=== PATIENT | female | born 1995 ===

== ENCOUNTER 2023-08-22 11:37 | Emergency (ER) | payer SELFPAY ==
--- NOTE | ~2023-08-22 | CT_ITS ---
EXAMINATION: CT HEAD AND FACIAL BONES WITHOUT CONTRAST CLINICAL INFORMATION: Fall intoxicated COMPARISON: None TECHNIQUE: Contiguous axial imaging was performed from the skull base to vertex and facial bones without intravenous administration of contrast. This CT examination was performed using dose optimization techniques as appropriate, variously including the following: *Automated exposure control *Adjustment of mA and/or kV according to patient size (this includes techniques or standardized protocols for targeted exams where dose is matched to indication/reason for exam; i.e. extremities or head) *Use of iterative reconstruction technique DLP: 643.99 mGy-cm (CT Head) 321.33 mGy-cm (CT Facial Bones) FINDINGS: There is no evidence of acute intracranial hemorrhage or territorial infarction. No abnormal mass effect or midline shift is seen. Rao to white matter differentiation is well preserved. No extra-axial fluid collections are identified. The ventricles are normal in size. There is no abnormal attenuation within the brain parenchyma.. The osseous structures and soft tissues are normal. The paranasal sinuses are well-aerated. No air-fluid levels are seen. There is slight rightward deviation of the nasal septum. The ostiomeatal complexes are clear. The lamina papyracea are intact. The ethmoid roofs are symmetric. No maxillary periapical disease is seen. The mastoid air cells and visualized middle ear cavities are well-aerated. The orbits are normal. The TMJs are unremarkable. CT/CT cervical spine wo IV con IMPRESSION: 1. No acute intracranial pathology. 2. No acute visible fracture or dislocation. EXAMINATION: Noncontrast CT scan of the cervical spine. INDICATION: Fall COMPARISON: None. TECHNIQUE: Helical, multidetector axial images were obtained from the occiput to the upper thorax. Coronal and sagittal reformats of the cervical spine were provided for interpretation. DLP: 262.64 mGy-cm FINDINGS: No acute fractures or dislocations of the cervical spine are seen. Straightening the normal cervical curvature. Anatomic alignment and positioning of the vertebral bodies and posterior elements is noted. The atlantoaxial joint and craniovertebral articulations are normal without evidence of subluxation. There is no prevertebral soft tissue swelling. The thyroid gland and visualized portions of the lung apices and mediastinum are unremarkable. Focus of air along the posterior right trachea mediastinum potentially venous/iatrogenic in etiology is no tracheal diverticulum definitively visualized. IMPRESSION: 1. No acute visible fracture or dislocation. 2. Straightening the normal cervical curvature.
[2023-08-22 11:42] VITALS: BP 105/65; PULSE 116; RESP 16; TEMP 37.1; O2SAT 95; BMI 20.7
--- NOTE | 2023-08-22 11:42 | ED_ITS ---
HPI - Wound/Laceration General Chief Complaint: Wound/Laceration Stated Complaint: chin lac Time Seen by Provider: 08/22/23 12:17 Source: patient and other (friend) Mode of arrival: ambulatory Limitations: no limitations History of Present Illness ED Provider: Evans HPI narrative: Patient is a 28-year-old female presenting to the emergency department with complaint of chin laceration and bruising to left upper eyelid. States that she was out last night and drinking alcohol. Friend states that when she dropped the patient off at home she was acting normally and had no injuries. Patient states that she woke with the laceration and bruising to left eye and no recollection of what happened. She denies current headache or changes in vision. Denies neck or back pain. Unknown last Tdap. Onset (ago): hour(s) Location: face Place: home Patient tetanus UTD: No Context: other (Unknown) Associated symptoms: pain Related Data Allergies Allergy/AdvReac Type Severity Reaction Status Date / Time No Known Allergies Allergy Verified 08/22/23 11:48 Review of Systems 2 Review of Systems: As per HPI. Yes all other systems are reviewed and are negative [facility] Social History Social History Advance Directives: No Advance Directives Information Provided: Yes Do you have a plan to hurt others: No Plan Physical Exam 2 Vital Signs: Vital Signs: Last Vital Signs Temp 98.7 F 08/22/23 14:05 Pulse 116 H 08/22/23 14:05 Resp 16 08/22/23 14:05 BP 105/65 08/22/23 14:05 Pulse Ox 95 08/22/23 14:05 O2 Del Method Room Air 08/22/23 14:05 BMI result Body Mass Index 20.7 Vital signs have been reviewed and appear to be correct. Blood pressure normal. Heart rate mildly tachycardic. Respiratory rate normal. Temperature normal. Oxygen saturation normal. Const: General: healthy appearing and no acute distress O rientation/consciousness: oriented to person, oriented to place, oriented to time and patient oriented x3 Limitations: no limitations HEENT: Head: Yes No palpable skull fracture present, Yes normocephalic, Yes atraumatic, No Wynn's sign and Yes periorbital ecchymosis (left upper eyelid only) Ears: hearing grossly normal bilaterally, external ears normal, TM's normal bilaterally and EAC's normal General nose exam: Normal external nose present Face and sinus: Yes face symmetric Face images: 1. 1.5cm linear laceration Mouth: Normal oral and palatal mucosa present, lip normal, tongue normal, oropharynx normal and moist mucous membranes Teeth and gingiva: dentition normal Throat: Yes posterior oropharynx normal, Yes uvula midline and No uvular edema Eyes: General: appearance normal, both eyes and all related structures V isual Maier: normal visual maier by confrontation Eyelids: Yes eyelid abnormality (ecchymosis left upper eyelid) Conjunctivae: conjunctivae normal Sclerae: sclerae normal Corneas: corneas normal Pupils: Equal, round and reactive pupils present EOM: EOMs intact bilaterally Neck: Neck: Yes normal visual inspection, Yes full ROM, Yes trachea midline, Yes supple and No anterior neck swelling Chest: Chest palpation & inspection: normal inspection of the chest and normal palpation of entire chest wall Resp: Effort & Inspection: normal respiratory effort and able to speak in complete sentences Auscultation: clear to auscultation bilaterally Cardio: Rate: regular rate Rhythm: regular rhythm Heart sounds: S1 normal heart sound present and S2 normal heart sound present GI: Palpation (GI): Soft to palpation and nontender Auscultation: n ormoactive bowel sounds : General: Yes no CVA tenderness Back/Spine/Pelvis: Back: no CVA tenderness Cervical Spine: normal cervical lordosis, cervical ROM normal, No cervical muscular tenderness, No pain with cervical ROM, No Cervical spine tenderness and No step off deformity T horacic/Lumbar Spine: thoracic and lumbar spine normal to inspection, No thoracic spinal tenderness and No lumbar spinal tenderness Pelvis: no pain with anterior-posterior compression and no pain with lateral compression Skin: General skin exam: elasticity normal and turgor normal Neuro: General: oriented to person, oriented to place, oriented to time, patient oriented x3, moves all extremities, no focal motor deficits and CN's II- XI intact bilaterally Cranial nerves: Yes Equal, round and reactive pupils present Cognition (Neuro): normal cognition Extrem: General: Yes full ROM, Yes no pedal edema and Yes no calf tenderness Psych: Mental Status: mental status grossly normal Affect: normal affect Thought process: Normal thought process present Course Course Course Narrative: This is an RME: Additional HPI, ROS, PE not included below will be deferred to primary provider. RME assessment and note performed by: Anita Reyes PA-C This is a [id number] who presents to the ER with a complaint of chin laceration. Pt states that she was intoxicated last night and only remembers going home and waking up with a laceration to her chin. She is not on AC. She is A&Ox4 Plan: Needs lac repair Medications Administered Discontinued Medications Generic Name Dose Route Start Last Admin Trade Name Freq PRN Reason Stop Dose Admin Diphtheria/Tetanus/Acell Pertussis 0.5 ml 08/22/23 12:47 08/22/23 13:12 Diphth,Pertus(Acell),Tet Adult 0.5 Ml Syringe IM 08/22/23 12:48 0.5 ml .ONCE ONE Administration Medical Decision Making Medical Decision Making [facility] Narrative: Patient is a 28-year-old female presenting to the emergency department with complaint of chin laceration and bruising to left upper eyelid. On exam patient is awake, A+Ox3, VS WNL, afebrile, normal neurological exam without focal deficits, physical exam findings as above. Given reported symptoms and physical exam findings, initial differential includes chin laceration, orbital contusion, IHC, skull fracture, facial bones fracture, cervical vertebral fracture or subluxation. Discussed repair of laceration with patient and she is refusing sutures, only wants steri-strips/glue. Feel this is acceptable and laceration was cleaned with Betadine and saline then repaired with Steri-Strips and Exofin skin glue without complication. Tdap updated. 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 Risks of leaving against medical advice discussed with patient up to and including . Patient able to verbalize understanding of risks and is choosing to leave against medical advice anyway. Advised patient she can return at any time if she changes her mind. Return precautions discussed. Patient verbalized understanding of and agreement with plan. Review of imaging after discharge against medical advice. CT head/facial bones notable for no acute visible fracture, no acute intracranial pathology. CT C- spine is without evidence of fracture subluxation My interpretation is in agreement with the radiologist's interpretation. No further action indicated. Differential Diagnosis Differential Diagnoses: The differential diagnosis associated with the presentation includes As per MDM. Admission/Observation Consideration of admission/observation: Escalation of care including admission/observation considered Patient would have been admitted to the hospital had their work up had any findings where hospital admission was appropriate and their clinical presentation warranted hospital admission. Independent Interpretation I performed an independent interpretation of an: CT Scan Interpretation: CT head/facial bones notable for no acute visible fracture, no acute intracranial pathology. CT C-spine is without evidence of fracture subluxation My interpretation is in agreement with the radiologist's interpretation. No further action indicated. Radiology Impression Discussion of test interpretation with radiology: I have reviewed the radiologist's reading. Radiologist Impression: CT/CT head/brain wo IV con IMPRESSION: 1. No acute intracranial pathology. 2. No acute visible fracture or dislocation. IMPRESSION: 1. No acute visible fracture or dislocation. 2. Straightening the normal cervical curvature. External Record Review External record reviewed: Inpatient record, Office record and Outpatient record Discharge Plan Discharge Clinical Impression: Laceration of chin Patient Disposition: Left Against Medical Advice Instructions: Laceration (DC), Skin Adhesive Care (ED), Steristrips (ED) Additional Instructions: You have been evaluated in the emergency department today for a laceration to your chin. Your laceration was repaired in the emergency department with skin glue. Please keep the area surrounding the laceration clean and dry for the next 24 hours. After that please assess the wound daily. Keep the area out of direct sunlight for the next 6 months to help prevent scarring. The glue will fall off on its own in a few days, do not pick or peel at the edges. If you develop fever, redness, swelling at the site of your laceration, or thick yellow drainage please come back to the ER for a wound check. You left against medical advice prior to the interpretation of your CT images of your head, face, and neck. Return to the emergency department if you develop headache, changes in vision, dizziness or lightheadedness, difficulty with everyday tasks, difficulty walking with steady gait, new weakness, numbness, tingling to her extremities or any other concerning symptoms. Stand Alone Forms: Against Medical Advice Interventions: ED Discharge Assessment Last Done: 08/22/23 14:05 Discharge Date/Time: 08/22/23 14:07 Print Language: Senegalese
[2023-08-22] MEDS: Diphth,Pertus(ACell),Tet Adult 0.5 ML SYRINGE IM (13:12)
[2023-08-22 14:05] VITALS: BP 105/65; PULSE 116; RESP 16; TEMP 37.1; O2SAT 95
== END 2023-08-22 14:07 | disposition left against medical advice (07) ==
PROVIDERS: Emergency Provider Emergency Medicine
DX: S01.81XA Laceration without foreign body of other part of head, initial encounter (principal); X58.XXXA Exposure to other specified factors, initial encounter; Y93.9 Activity, unspecified; Y92.9 Unspecified place or not applicable; Y99.9 Unspecified external cause status
CPT/HCPCS: 12011; 70450; 70486; 72125; 90471; 90715; 99282; 99284